=== PATIENT | female | born 1990 | race Caucasian/White ===

== ENCOUNTER 2018-10-02 08:28 | Emergency (ER) | payer OTHER ==
[2018-10-02 10:57] LABS: ADD MAN DIFF? NO
[2018-10-02 10:58] LABS: WHITE BLOOD COUNT 6.2 10^3/ul (4.8-10.8)
[2018-10-02 10:58] LABS: BASOPHILS % 0.5 % (0.0-2.0); EOSINOPHILS # 0.1 10^3/ul (0.0-0.5); HEMATOCRIT 36.9 % (37.0-47.0); HEMOGLOBIN 12.2 g/dl (12.0-16.0); LYMPHOCYTES # 1.4 10^3/ul (0.8-2.9); LYMPHOCYTES % 22.2 % (15.0-51.0); MEAN CORPUSCULAR HGB CONC 33.1 g/dl (32.0-37.0); MEAN CORPUSCULAR VOLUME 90.7 fl (82.0-101.0); MEAN PLATELET VOLUME 10.6 fl (7.4-10.4); MONOCYTE # 0.4 10^3/ul (0.3-0.9); MONOCYTES % 6.3 % (0.0-11.0); NEUTROPHIL # 4.3 10^3/ul (1.6-7.5); NEUTROPHILS % 69.7 % (39.0-77.0); PLATELET COUNT 235 10^3/UL (140-415); RED BLOOD COUNT 4.07 10^6/ul (4.20-5.40); RED CELL DISTRIBUTION WIDTH 11.7 % (11.5-14.5)
[2018-10-02] MEDS: DIPHENHYDRAMINE 50 MG INJ IV (11:00)
[2018-10-02] MEDS: METOCLOPRAMIDE 10 MG INJ IV (11:00)
[2018-10-02] MEDS: KETOROLAC 30 MG INJ IV (11:00)
[2018-10-02] MEDS: SOD CHLORIDE 0.9% 1,000 ML IV (11:01)
[2018-10-02 11:16] LABS: ANION GAP 12 (5-13); BLOOD UREA NITROGEN 8 mg/dl (7-20); CALCIUM 9.7 mg/dl (8.4-10.2); CARBON DIOXIDE 28 mmol/L (21-31); CHLORIDE 103 mmol/L (97-110); CREATININE 0.58 mg/dl (0.44-1.00); Estimated GFR > 60 mL/min (>60); GLUCOSE 101 mg/dl (70-220); POTASSIUM 4.2 mmol/L (3.5-5.1); SODIUM 143 mmol/L (135-144)
[2018-10-02] MEDS: DEXAMETHASONE 10 MG/ML 1 ML INJ IV (12:57)
== END 2018-10-02 13:05 | disposition home or self-care (01) ==
LOC: FTE 08:28
DX: R51 Headache (principal)
CPT/HCPCS: 36415; 80048; 81025; 85025; 96361; 96374; 96375; 99284-25